=== PATIENT | female | born 1970 | race Caucasian/White ===

== ENCOUNTER 2017-02-26 19:04 | Emergency (ER) | payer BC, OTHER ==
--- NOTE | 2017-02-26 19:11 | EDPHY ---
H & P HPI/ROS: HPI CHIEF COMPLAINT: Rash to left lower extremity. Anterior only tibia only. HISTORY OF PRESENT ILLNESS: This patient very pleasant 46-year-old female, denies any significant medical history does not take any daily medications she presents to the emergency room with a rash to the anterior left tibia. It is erythematous, pruritic, scaly, blanchable. She tells me she has had for month. No fever. She is due to go on a trip for 3 weeks to [place] and try to make appoint with a global account director but was unable to get in with 1. She decided come the emergency room for evaluation. She tells me she has had this rash for month. She has not had fever. It has not spread. It is itchy. Localized only to the anterior left tibia. She is unsure if she came into contact with something. She has never had a rash like this before. There is no central clearing. Past Medical History: No medical history Past Surgical History: No surgical history Social History: Denies daily use of drugs alcohol tobacco products Family History: Noncontributory ROS REVIEW OF SYSTEMS: A comprehensive 10 point review of systems is otherwise negative aside from elements mentioned in the history of present illness. Exam Constitutional triage nursing summary reviewed, vital signs reviewed, awake/ alert. Eyes normal conjunctivae and sclera, EOMI, PERRLA. HENT normal inspection, atraumatic, moist mucus membranes, no epistaxis, neck supple/ no meningismus, no raccoon eyes. Respiratory clear to auscultation bilaterally, normal breath sounds, no respiratory distress, no wheezing. Cardiovascular rate normal, regular rhythm, no murmur, no edema, distal pulses normal. Gastrointestinal soft, non-tender, no rebound, no guarding, normal bowel sounds, no distension, no pulsatile mass. Genitourinary no CVA tenderness. Musculoskeletal no midline vertebral tenderness, full range of motion, no calf swelling, no tenderness of extremities, no meningismus, good pulses, neurovascularly intact. Skin left anterior shafer,/tibia; this shows an erythematous scaly palpable rash, blanchable, erythematous, no cellulitis, no warmth, no petechiae no purpura, no abscess or cellulitis, appears to be a dermatitis or contact dermatitis, no central clearing, slight scale. Neurologic awake, alert and oriented x 3, AAOx3, moves all 4 extremities equally, motor intact, sensory intact, CN II-XII intact, normal cerebellar, normal vision, normal speech. Psychiatric normal mood/affect. Heme/Lymph/Immune no lymphadenopathy. Differential Diagnosis: Includes but is not limited to in a particular order, dermatitis, vasculitis, psoriasis, eczema, fungal infection Medical Decision Making: Plan for this patient recommend prednisone 60 mg for 5 days. Cool compresses. If rash gets worse or she develops a fever or starts weeping or looks infected she should seek medical attention return emergency room she understands. She is also follow up with Dermatology outpatient. Source: Patient Constitutional: Initial Vital Signs Temperature (C) 36.5 C 02/26/17 19:13 Heart Rate 79 02/26/17 19:13 Respiratory Rate 16 02/26/17 19:13 Blood Pressure 104/70 02/26/17 19:13 O2 Sat (%) 96 02/26/17 19:13 O2 Delivery Mode Room Air Allergies/Adverse Reactions: No Known Allergies Allergy (Unverified 02/26/17 19:13) Home Medications: Medication Instructions Recorded predniSONE 60 mg PO DAILY #15 tab 02/26/17 Departure - Departure Disposition: Home, Routine, Self-Care Clinical Impression: Rash Condition: Good Instructions: Dermatitis (ED), Acute Rash (ED) Additional Instructions: 1. Use cool compresses. 2. Take your prednisone as prescribed. 3. Please follow up with Dermatology on outpatient basis. Return emergency room if there is any worsening symptoms questions or concerns. Referrals: RAMANDEEP VALDES [Primary Care Provider] - As per Instructions Prescriptions: predniSONE 60 mg PO DAILY #15 tab
[2017-02-26 19:15] VITALS: BP 104/70; PULSE 79; RESP 16; TEMP 97.7; O2SAT 96
== END 2017-02-26 19:22 | disposition home or self-care (01) ==
LOC: CED 19:04
DX: R21 Rash and other nonspecific skin eruption (principal)